=== PATIENT | female | born 1935 | race Caucasian/White ===

== ENCOUNTER 2020-08-04 17:02 | Emergency (ER) | payer MEDICARE, OTHER ==
[2020-08-04] MEDS ORDERED: HYDROmorphone 0.5 MG/0.5 ML Syringe IM ONE (18:30)
--- NOTE | 2020-08-04 18:37 | EDM.PDOC ---
ED HPI GENERAL MEDICAL PROBLEM - General Chief Complaint: Upper Extremity Injury/Pain Stated Complaint: R SHOULDER PAIN Time Seen by Provider: 08/04/20 18:14 Source of Information: Reports: Patient, RN Notes Reviewed History Limitations: Reports: No Limitations - History of Present Illness INITIAL COMMENTS - FREE TEXT/NARRATIVE: Patient is an 85-year-old female who presents to the ED for her right shoulder pain. Patient lives in [facility] and had her right shoulder injected with some cortisone by Deny Krause 8 days ago. Patient notes she has had cortisone shots in the past performed by Dr. Mitchell and they all seem to have lasted longer than this. Patient states that her shoulder felt much better for the last several days however it started to get painful again yesterday, and worsened today. She is complaining of just a sharp constant ache. She does not note that movement seems to make it worse. She tried 2 tablets of Tylenol at home and this did not seem to help much. Patient did not have any fall or trauma to the area that she can recount. She notes that she does sleep with her arm underneath her head and under her pillow. She has had no fevers or chills, cough/shortness of breath, nausea/vomiting/diarrhea. Patient believes she might have a little bit of weakness associated with this due to the pain. Right Shoulder Pain Score (Numeric/FACES): 10 - Related Data Allergies Allergy/AdvReac Type Severity Reaction Status Date / Time No Known Allergies Allergy Verified 08/04/20 18:10 Home Meds: Home Meds Diltiazem [Cardizem CD] 120 mg PO DAILY #30 cap.cd 07/14/16 [Rx] Levothyroxine [Synthroid] 50 mcg PO ACBREAKFAST 07/14/16 [History] Acetaminophen/HYDROcodone [[place] 325-5 MG] 1 tab PO Q6H PRN #15 tablet 08/04/20 [Rx] predniSONE 20 mg PO ASDIRECTED #15 tab 08/04/20 [Rx] Past Medical History HEENT History: Reports: Cataract, Hard of Hearing, Impaired Vision Other HEENT History: glasses, hearing aids Cardiovascular History: Reports: Other (See Below) Other Cardiovascular History: racing heart Respiratory History: Reports: Pneumonia, Recurrent Other Respiratory History: 1x Gastrointestinal History: Reports: GERD Genitourinary History: Reports: UTI, Recurrent 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: Other WIRE WINDING MACHINE TENDER History: 3 miscarriages Musculoskeletal History: Reports: Arthritis, Other (See Below) Other Musculoskeletal History: elbow dislocation Psychiatric History: Reports: Anxiety, PTSD Other Psychiatric History: in the past Endocrine/Metabolic History: Reports: Hypothyroidism Oncologic (Cancer) History: Reports: Other (See Below) Other Oncologic History: bone cancer - Infectious Disease History Infectious Disease History: Reports: Chicken Pox, Measles, Mumps, Novel Coronavirus - Past Surgical History HEENT Surgical History: Reports: Cataract Surgery Other HEENT Surgeries/Procedures: Both eyes Other Female Surgeries/Procedures: Patient states "Aspiration of the ovaries- had to have it drained 2x" Social & Family History - Tobacco Use Tobacco Use Status *Q: Never Tobacco User Second Hand Smoke Exposure: No - Caffeine Use Caffeine Use: Reports: None - Recreational Drug Use Recreational Drug Use: No Review of Systems - Review of Systems Review Of Systems: Comprehensive ROS is negative, except as noted in HPI. ED EXAM, GENERAL - Physical Exam Exam: See Below Exam Limited By: No Limitations General Appearance: Alert, WD/WN, No Apparent Distress Respiratory/Chest: No Respiratory Distress, Lungs Clear, Normal Breath Sounds, No Accessory Muscle Use, Chest Non-Tender Cardiovascular: Normal Peripheral Pulses, Regular Rate, Rhythm, No Edema Extremities: Normal Inspection, Normal Range of Motion, Normal Capillary Refill Neurological: Alert, Oriented, Normal Cognition, No Motor/Sensory Deficits Psychiatric: Normal Affect, Normal Mood Skin Exam: Warm, Dry, Intact, Normal Color, No Rash Course - Vital Signs Last Recorded V/S: Last Vital Signs Temp 97.0 F 08/04/20 18:05 Pulse 86 08/04/20 18:05 Resp 18 08/04/20 18:05 BP 162/89 H 08/04/20 18:05 Pulse Ox 97 08/04/20 18:05 - Orders/Labs/Meds Meds: Medications Discontinued Medications Generic Name Dose Route Start Last Admin Trade Name Juan Mq PRN Reason Stop Dose Admin Hydromorphone HCl 0.5 mg 08/04/20 18:30 08/04/20 18:45 Dilaudid IM 08/04/20 18:31 0.5 mg ONETIME ONE Administration - Re-Assessments/Exams Free Text/Narrative Re-Assessment/Exam: 08/04/20 18:34 Patient presents to the ED for her right shoulder pain, we will give her 0.5 mg IM Dilaudid for pain management, we will start her on a prednisone burst, and get her some tablets of [place] for acute pain. Patient verbalized understanding of this plan and is agreeable at this time. Departure - Departure Time of Disposition: 19:15 Disposition: Home, Self-Care 01 Condition: Good Clinical Impression: Right shoulder pain Qualifiers: Chronicity: acute Qualified Code(s): M25.511 - Pain in right shoulder - Discharge Information *PRESCRIPTION DRUG MONITORING PROGRAM REVIEWED*: Yes *COPY OF PRESCRIPTION DRUG MONITORING REPORT IN PATIENT RAJ: No Prescriptions: Acetaminophen/HYDROcodone [[place] 325-5 MG] 1 tab PO Q6H PRN #15 tablet PRN Reason: Pain predniSONE 20 mg PO ASDIRECTED #15 tab Instructions: Shoulder Pain, [id number] Referrals: Lorena Bauer SUPPLY CHAIN MANAGER [Primary Care Provider] - Forms: ED Department Discharge Additional Instructions: You have been evaluated in the ED for your shoulder pain You were given a IM injection of Dilaudid for pain management, You have been prescribed some prednisone, and some hydrocodone tablets for ongoing pain medication. Prednisone dosing will be 1 tablet 2 times a day for 5 days, and then 1 tablet once a day for 5 days. Please do not take this on empty stomach, eat your breakfast and then take this medication. Please use ice/heat as tolerated to the affected area. Please try to elevate the affected area to relieve swelling. You may take Tylenol 500 mg or ibuprofen 600mg q6 hrs for pain relief. Please do so until you have a tolerable level of pain with activity. Do not exceed 4000mg Tylenol or 3200mg ibuprofen in a 24 hour time period. You were given a prescription for a strong pain medication, hydrocodone/acetaminophen 5/325 mg, please take 1 tab every 6 hours as needed for pain not relieved by Tylenol or ibuprofen alone. Please note this medication does contain Tylenol in it, so do not take more than 4000 mg in a 24- hour time span. These medications can be addictive, so please take as few as possible to achieve adequate pain control. These meds can also be quite constipating, recommend that you increase your oral fluid intake and take a stool softener like MiraLAX while taking these medications. Do not drive while taking this medication. Please return to ED if your symptoms should change or worsen. Sepsis Event Note (ED) - Evaluation Sepsis Screening Result: No Definite Risk - Focused Exam Vital Signs: Vital Signs Temp Pulse Resp BP Pulse Ox 08/04/20 18:05 97.0 F 86 18 162/89 H 97
[2020-08-04 19:28] VITALS: BP 148/67; PULSE 82
== END 2020-08-04 19:28 | disposition home or self-care (01) ==
LOC: JD.ED 17:02
DX: M25.511 Pain in right shoulder (principal); E03.9 Hypothyroidism, unspecified; Z79.899 Other long term (current) drug therapy
CPT/HCPCS: 96372; 99283; J1170

== ENCOUNTER 2022-01-31 09:52 | Day surgery (SDC) | payer MEDICARE, OTHER ==
[~2022-01-31 09:52] MED LIST: Lactated Ringers 1,000 ML IV SCH; Lidocaine 1% 4 ML ONE; Lidocaine 1%/Sod Bicarbonate in NS 8.4% 1 ML Syringe IDERM PRN; Morphine 8 MG, EPINEPHrine 0.3 MG, Cefuroxime 750 MG, Ketorolac 30 MG, Sodium Chloride ... PRN; Propofol 200 MG/20 ML SDV ONE; Sodium Chloride 0.9% 10 ML Syringe FLUSH PRN; Sodium Chloride 0.9% 10 ML Syringe FLUSH SCH
[2022-01-31] MEDS ORDERED: Vancomycin 1 GM SDV ONE (10:22)
[2022-01-31] MEDS ORDERED: Ropivacaine 0.5% 5 MG/ML 30 ML SDV ONE (11:28)
[2022-01-31] MEDS ORDERED: EPINEPHrine 1 MG/ML SDV ONE (11:30)
[2022-01-31] MEDS ORDERED: ceFAZolin 2 GM Vial ONE (11:52)
[2022-01-31] MEDS ORDERED: Phenylephrine HCl In 0.9% NaCl 1 MG/10 ML Vial ONE (11:57)
[2022-01-31] MEDS ORDERED: ePHEDrine 50 MG/ML SDV ONE (12:07)
[2022-01-31] MEDS ORDERED: Lactated Ringers 1,000 ML ONE (12:11)
[2022-01-31] MEDS ORDERED: Ondansetron 4 MG/2 ML SDV IVPUSH PRN (12:26)
[2022-01-31] MEDS ORDERED: diphenhydrAMINE 50 MG/ML SDV IVPUSH PRN (12:26)
[2022-01-31] MEDS ORDERED: fentaNYL 100 MCG/2 ML SDV IVPUSH PRN (12:26)
[2022-01-31] MEDS ORDERED: Ondansetron 4 MG/2 ML SDV ONE (12:45)
[2022-01-31] MEDS ORDERED: Acetaminophen/HYDROcodone 325-5 MG Tab PO ONE (15:00)
[2022-01-31 16:36] VITALS: BP 110/68; PULSE 70
== END 2022-01-31 17:10 | disposition home or self-care (01) ==
LOC: JD.SDS 09:52
PROVIDERS: ATTEND Orthopaedic Surgery
DX: M17.12 Unilateral primary osteoarthritis, left knee (principal); I11.0 Hypertensive heart disease with heart failure; I50.9 Heart failure, unspecified; E03.9 Hypothyroidism, unspecified; K21.9 Gastro-esophageal reflux disease without esophagitis; M19.90 Unspecified osteoarthritis, unspecified site; M85.80 Other specified disorders of bone density and structure, unspecified site; E55.9 Vitamin D deficiency, unspecified; Z79.890 Hormone replacement therapy; Z88.8 Allergy status to other drugs, medicaments and biological substances; Z79.2 Long term (current) use of antibiotics; Z79.899 Other long term (current) drug therapy; Z86.16 Personal history of COVID-19; Z98.890 Other specified postprocedural states
CPT/HCPCS: 0055T; 27447; 73560; 97110; 97116; 97161; A9270; C1713; C1776; J0171; J0690; J0697; J1885; J2270; J2405; J2704; J2795; J3010; J3370; J7120; 01402; 64450; 76942; 99100